=== PATIENT | male | born 1955 | race African-American/Black ===

== ENCOUNTER 2016-12-02 13:54 | Emergency (ER) | payer MEDICAID, OTHER ==
[2016-12-02 14:28] LABS: #Basophils 0.1 thou/uL (0.0-0.2); #Eosinphils 0.3 thou/uL (0.0-0.7); #Lymphocytes 1.3 thou/uL (1.20-3.40); #Monocytes 0.7 thou/uL (0.11-0.59); #Neutrophils 5.7 thou/uL (1.40-6.50); %Basophils 1.2 % (0.0-1.0); %Eosinophils 3.7 % (0.0-10.0); %Lymphocytes 15.8 % (21.0-51.0); %Monocytes 8.1 % (0.0-10.0); %Neutrophils 71.3 % (42.0-75.0); Hemoglobin 12.5 g/dL (14.0-18.0); Mean Corpuscular HGB CONC 33.7 g/dL (32.0-36.0); Mean Corpuscular Hemoglobin 31.7 pg (27.0-31.0); Mean Corpuscular Volume 94.2 fl (80.0-94.0); Mean Platelet Volume 9.1 fL (7.4-10.4); Platelet Count 176 thou/uL (130-400); RBC Distribution Width 12.2 % (11.5-14.5); Red Blood Cell (RBC) Count 3.93 mill/uL (4.70-6.10)
[2016-12-02 14:47] LABS: ALT (SGPT) 12 U/L (8-55); AST (SGOT) 16 U/L (5-34); Albumin 3.8 g/dL (3.4-4.8); Alkaline Phosphatase 83 U/L (40-150); Anion Gap 11 mmol/L (10-20); BUN (Urea Nitrogen) 11 mg/dL (8.4-25.7); Bilirubin, Total 0.8 mg/dL (0.2-1.2); Calc. Creatinine Clearance 0 mL/min (70-130); Calcium 8.6 mg/dL (7.8-10.44); Carbon Dioxide 28 mmol/L (23-31); Chloride 105 mmol/L (98-107); Estimated GFR-MDRD Greater than 90; Globulin 2.8 g/dL (2.4-3.5); Glucose 97 mg/dL (80-115); Potassium 3.5 mmol/L (3.5-5.1); Protein, Total 6.6 g/dL (5.8-8.1); Sodium 140 mmol/L (136-145)
== END 2016-12-02 15:01 | disposition home or self-care (01) ==
LOC: BURERS 13:54
DX: R42 Dizziness and giddiness (principal); I10 Essential (primary) hypertension; E78.00 Pure hypercholesterolemia, unspecified; Z87.891 Personal history of nicotine dependence
CPT/HCPCS: 80053; 85025; 93005

== ENCOUNTER 2021-08-03 14:56 | Emergency (ER) | payer MEDICARE, OTHER ==
[2021-08-03] MEDS ORDERED: Iopamidol 370 76% 100 ML VIAL FS ONE (14:57)
[2021-08-03 15:25] LABS: #Basophils 0.1 thou/uL (0.0-0.2); #Eosinphils 0.2 thou/uL (0.0-0.7); #Lymphocytes 2.3 thou/uL (1.20-3.40); #Neutrophils 10.4 thou/uL (1.40-6.50); %Basophils 0.5 % (0.0-1.0); %Eosinophils 1.1 % (0.0-10.0); %Lymphocytes 16.2 % (21.0-51.0); %Neutrophils 75.2 % (42.0-75.0); Hemoglobin 7.1 g/dL (14.0-18.0); Mean Corpuscular HGB CONC 31.7 g/dL (32.0-36.0); Mean Corpuscular Hemoglobin 23.7 pg (27.0-31.0); Mean Corpuscular Volume 74.7 fL (78.0-98.0); Platelet Count 431 thou/uL (130-400); Red Blood Cell (RBC) Count 2.98 mill/uL (4.70-6.10); White Blood Cell (WBC) Count 13.9 thou/uL (4.8-10.8)
[2021-08-03] MEDS ORDERED: Ketorolac Tromethamine 30 MG/ML VIAL ONE ×2 (15:29→22:34)
[2021-08-03 15:42] LABS: Bilirubin Negative (Negative); Blood, Urine Trace (Negative); Clarity Cloudy (Clear); Glucose, Urine (Dipstick) Negative (Negative); Ketone, Urine Negative (Negative); Leukocyte Moderate (Negative); Nitrite Negative (Negative); Protein, Urine (Dipstick) Trace mg/dL (Neg-Trace); Specific Gravity, Urine 1.015 (1.005-1.030); Urobilinogen > or = 8.0 mg/dL (Less than 2); pH, Urine 7.5 (5.0-9.0)
[2021-08-03 15:47] LABS: MDiff Complete? YES; Microcytosis SLIGHT = 6-15 cells (100X) (0-5/hpf)
[2021-08-03 15:48] LABS: Basophilic Stippling SLIGHT = 1-2 cells (100X) (None Seen); Elliptocytes SLIGHT = 2-5 cells (100X) (0-1/hpf); Hypochromia SLIGHT = 6-15 cells (100X) (0-5/hpf); Macrocytosis SLIGHT = 6-15 cells (100X) (0-5/hpf)
[2021-08-03] MEDS ORDERED: Ciprofloxacin Lactate/D5W 400 mg/200 ml Premix ONE (15:50)
[2021-08-03 15:54] LABS: Bacteria/HPF 3+ HPF (None Seen); RBC/HPF 0-3 HPF (0-3); Squamous Epithelial 0-3 HPF (0-3)
[2021-08-03 15:56] LABS: Calcium Oxalate Crystals 1+ HPF (None Seen)
[2021-08-03 16:07] LABS: ALT (SGPT) 40 U/L (8-55); AST (SGOT) 43 U/L (5-34); Albumin 2.1 g/dL (3.4-4.8); Alkaline Phosphatase 186 U/L (40-110); Anion Gap 12 mmol/L (10-20); BUN (Urea Nitrogen) 7 mg/dL (8.4-25.7); Bilirubin, Total 0.3 mg/dL (0.2-1.2); CK (CPK) 19 U/L (30-200); Calc. Creatinine Clearance 0 mL/min (70-130); Carbon Dioxide 26 mmol/L (23-31); Chloride 101 mmol/L (98-107); Globulin 4.1 g/dL (2.4-3.5); Glucose 99 mg/dL (80-115); Potassium 4.2 mmol/L (3.5-5.1); Protein, Total 6.2 g/dL (5.8-8.1); Sodium 135 mmol/L (136-145)
[2021-08-03] MEDS ORDERED: cefTRIAXone\\ROCEPHIN 1 GM VIAL ONE (16:15)
[2021-08-03] MEDS ORDERED: Sodium Chloride 0.9% 100 ML ONE (16:15)
[2021-08-03] MEDS ORDERED: Diazepam 10 MG/2 ML SYRINGE ONE (16:21)
[2021-08-03 18:06] LABS: SARS-CoV-2 NAA Rapid Test Not Detected (NotDetected)
[2021-08-04] MEDS ORDERED: Fentanyl 100 MCG/2 ML VIAL ONE (01:38)
[2021-08-04] MEDS ORDERED: Ciprofloxacin Lactate/D5W 400 mg/200 ml Premix ONE (06:54)
[2021-08-04 10:06] LABS: Hemoglobin 5.6 g/dL (14.0-18.0); Mean Corpuscular Hemoglobin 23.2 pg (27.0-31.0); Mean Corpuscular Volume 75.1 fL (78.0-98.0); Mean Platelet Volume 5.8 fL (7.4-10.4); Platelet Count 409 thou/uL (130-400); RBC Distribution Width 16.1 % (11.5-14.5); Red Blood Cell (RBC) Count 2.41 mill/uL (4.70-6.10); White Blood Cell (WBC) Count 9.9 thou/uL (4.8-10.8)
[2021-08-04 10:08] LABS: #Eosinphils 0.1 thou/uL (0.0-0.7); #Lymphocytes 1.9 thou/uL (1.20-3.40); #Monocytes 0.7 thou/uL (0.11-0.59); #Neutrophils 7.1 thou/uL (1.40-6.50); %Basophils 0.4 % (0.0-1.0); %Eosinophils 1.5 % (0.0-10.0); %Lymphocytes 19.1 % (21.0-51.0); %Monocytes 6.8 % (0.0-10.0); %Neutrophils 72.2 % (42.0-75.0)
[2021-08-04 10:19] LABS: ALT (SGPT) 29 U/L (8-55); AST (SGOT) 25 U/L (5-34); Albumin 1.9 g/dL (3.4-4.8); Alkaline Phosphatase 152 U/L (40-110); Anion Gap 10 mmol/L (10-20); BUN (Urea Nitrogen) 7 mg/dL (8.4-25.7); Bilirubin, Total 0.3 mg/dL (0.2-1.2); Calc. Creatinine Clearance 0 mL/min (70-130); Calcium 7.9 mg/dL (7.8-10.44); Carbon Dioxide 26 mmol/L (23-31); Chloride 102 mmol/L (98-107); Globulin 3.4 g/dL (2.4-3.5); Glucose 100 mg/dL (80-115); Protein, Total 5.3 g/dL (5.8-8.1); Sodium 134 mmol/L (136-145)
[2021-08-04 10:20] LABS: Anisocytosis SLIGHT = 6-15 cells (100X) (0-5/hpf); MDiff Complete? YES; Microcytosis SLIGHT = 6-15 cells (100X) (0-5/hpf); Platelet Morphology Comment Appears Adequate
[2021-08-04] MEDS ORDERED: Pantoprazole 40 MG VIAL ONE ×2 (10:26→11:03)
[2021-08-04 11:11] LABS: INR-International Normal Ratio 1.3; Prothrombin Time 16.3 sec (12.0-14.7)
== END 2021-08-04 11:26 | disposition short-term general hospital (02) ==
LOC: BURERS 14:56
DX: L89.619 Pressure ulcer of right heel, unspecified stage (principal); D64.9 Anemia, unspecified; N39.0 Urinary tract infection, site not specified; M86.9 Osteomyelitis, unspecified; I10 Essential (primary) hypertension; Z87.891 Personal history of nicotine dependence; Z79.899 Other long term (current) drug therapy; Z20.822 Contact with and (suspected) exposure to COVID-19
CPT/HCPCS: 36415; 36430; 71045; 74177; 80053; 81003; 81015; 82550; 83605; 83880; 84484; 85025; 85610; 86850; 86900; 86901; 87040; 87086; 93005; 94760; 96365; 96367; 96375; 96376; C9113; J0696; J0744; J1885; J3010; J3360; J3370; J3490; P9016; Q9967; U0002